=== PATIENT | female | born 2000 | race Caucasian/White ===

== ENCOUNTER 2019-10-25 21:17 | Emergency (ER) | payer OTHER ==
[~2019-10-25] VITALS: Ht 157.5 cm; Wt 70.5 kg
[2019-10-25] MEDS ORDERED: PEPC1TAB5 PO (21:36)
[2019-10-25] MEDS ORDERED: PRENTAB9 PO (21:36)
[2019-10-25 22:18] LABS: BASO % 0.4 % (0.0-1.0); EOS # 0.1 10^3/uL (0.0-0.5); EOS % 1.3 % (0.0-3.0); HEMATOCRIT 34.8 % (36.0-47.0); HEMOGLOBIN 11.7 g/dl (12.0-15.5); LYMPH # 3.1 10^3/uL (1.5-5.0); LYMPH % 39.3 % (24.0-44.0); MEAN CORPUSCULAR HEMOGLOBIN 29.5 pg (27.0-33.0); MEAN CORPUSCULAR HGB CONC 33.6 g/dl (32.0-36.5); MEAN CORPUSCULAR VOLUME 87.9 fl (80.0-96.0); MONO # 0.5 10^3/uL (0.0-0.8); NEUTROPHILS # 4.1 10^3/uL (1.5-8.5); NEUTROPHILS % 52.7 % (36.0-66.0); PLATELET COUNT, AUTOMATED 201 10^3/uL (150-450); RED BLOOD COUNT 3.96 10^6/uL (4.00-5.40); WHITE BLOOD COUNT 7.8 10^3/uL (4.0-10.0)
[2019-10-25 23:01] LABS: BLOOD UREA NITROGEN 8 MG/DL (7-18); CALCIUM LEVEL 8.7 MG/DL (8.5-10.1); CARBON DIOXIDE LEVEL 25 MEQ/L (21-32); CHLORIDE LEVEL 107 MEQ/L (98-107); CREATININE FOR GFR 0.59 MG/DL (0.55-1.30); GLUCOSE, FASTING 80 MG/DL (70-100); HCG, SERUM QUANTITATIVE 52537 MIU/ML; POTASSIUM SERUM 3.6 MEQ/L (3.5-5.1); SODIUM LEVEL 137 MEQ/L (136-145)
--- NOTE | 2019-10-26 00:32 | REPVR ---
PROCEDURE INFORMATION: Exam: US First Trimester, Transabdominal Exam date and time: 10/25/2019 12:14 AM Age: 19 years old Clinical indication: complicated by abdominal or pelvic pain; Lower; First trimester; Gestational age or lmp: 08/02/19; ; Additional info: Cramping TECHNIQUE: Imaging protocol: Real-time transabdominal obstetrical ultrasound of the maternal pelvis and a first trimester , less than 14 weeks 0 days, with image documentation. COMPARISON: No relevant prior studies available. FINDINGS: Intrauterine gestational sac with placenta is present. Placental position is posterior. No evidence of implantational hemorrhage. Fetus is identified, measuring fifty-nine mm in length. Doppler demonstrates heart rate of 164 beats/min. Concordant measurements suggest a gestational age of 12 weeks 5 days Right ovary measures 2.8 x 3 x 2.0 cm in size. Left ovary is not visualized. No abnormal volume of free pelvic fluid. IMPRESSION: Single intrauterine at 12 weeks 5 days estimated gestational age. No complication. Electronically signed by: Kevin Lockhart On 10/26/2019 00:32:25 AM
[2019-10-26] MEDS ORDERED: FLAG500T PO (01:30)
[2019-10-26] MEDS ORDERED: metroNIDAZOLE (FLAGYL) 500 MG TAB PO ONE (01:30)
[2019-10-26] MEDS ORDERED: MONI1CRE2 PV (01:30)
[2019-10-26 01:38] VITALS: BP 110/61
[2019-10-26 02:38] LABS: CHLAMYDIA DNA AMPLIFICATION NEGATIVE (NEGATIVE); GC DNA AMPLIFICATION NEGATIVE (NEGATIVE)
== END 2019-10-26 01:39 | disposition home or self-care (01) ==
LOC: M ED 21:17
DX: O98.911 Unspecified maternal infectious and parasitic disease complicating pregnancy, first trimester (principal); B37.3 Candidiasis of vulva and vagina; Z3A.13 13 weeks gestation of pregnancy

== ENCOUNTER 2019-11-22 10:16 | Emergency (ER) | payer OTHER ==
[~2019-11-22] VITALS: Ht 157.5 cm; Wt 72.2 kg
[~2019-11-22 10:16] MED LIST: FLAG500T PO; MONI1CRE2 PV; PEPC1TAB5 PO; PRENTAB9 PO
[2019-11-22] MEDS ORDERED: LEVOTAB10 (10:24)
[2019-11-22] MEDS ORDERED: ALBU8.5H (10:24)
[2019-11-22] MEDS ORDERED: diphenhydrAMINE 25MG CAP PO ONE (11:45)
[2019-11-22 12:46] VITALS: BP 98/52
== END 2019-11-22 12:47 | disposition home or self-care (01) ==
LOC: M ED 10:16
DX: O9A.212 Injury, poisoning and certain other consequences of external causes complicating pregnancy, second trimester (principal); T63.441A Toxic effect of venom of bees, accidental (unintentional), initial encounter; R22.1 Localized swelling, mass and lump, neck; R22.2 Localized swelling, mass and lump, trunk; O99.512 Diseases of the respiratory system complicating pregnancy, second trimester; J44.9 Chronic obstructive pulmonary disease, unspecified; O99.342 Other mental disorders complicating pregnancy, second trimester; F41.9 Anxiety disorder, unspecified; Z3A.17 17 weeks gestation of pregnancy; Z79.899 Other long term (current) drug therapy; Z88.0 Allergy status to penicillin

== ENCOUNTER → 2021-06-01 | Outpatient (CLI) | payer OTHER ==
[~2021-06-01] MED LIST changes: +ALBU8.5H; +LEVOTAB10
== END ==
LOC: M RAD 14:21
PROVIDERS: ATTEND Obstetrics & Gynecology
DX: N99.820 Postprocedural hemorrhage of a genitourinary system organ or structure following a genitourinary system procedure (principal)

== ENCOUNTER → 2021-06-01 | Outpatient (CLI) | payer OTHER ==
[2021-06-01 16:07] LABS: HEMATOCRIT 38.8 % (36.0-47.0); HEMOGLOBIN 12.8 g/dl (12.0-15.5); MEAN CORPUSCULAR VOLUME 91.1 fl (80.0-96.0); PLATELET COUNT, AUTOMATED 287 10^3/uL (150-450); RED BLOOD COUNT 4.26 10^6/uL (4.00-5.40); WHITE BLOOD COUNT 8.3 10^3/uL (4.0-10.0)
[2021-06-01 16:33] LABS: INR 0.96; PARTIAL THROMBOPLASTIN TIME 27.7 SECONDS (25.9-37.0); PROTHROMBIN TIME 13.2 SECONDS (12.7-14.5)
[2021-06-01 16:41] LABS: HCG, SERUM QUANTITATIVE < 1.0 MIU/ML
[2021-06-04 13:11] LABS: F8 ACTIVITY FOR F8 PANEL 87 % (56-140); F8 ACTIVITY vWB FOR F8 PANEL 48 % (50-200); F8 ANTIGEN FOR F8 PANEL 68 % (50-200)
== END ==
LOC: M LAB 15:31
PROVIDERS: ATTEND Obstetrics & Gynecology
DX: N93.9 Abnormal uterine and vaginal bleeding, unspecified (principal)